=== PATIENT | female | born 1970 | race Caucasian/White ===

== ENCOUNTER 2022-05-15 10:55 | Outpatient (CLI) | payer BC, SELFPAY ==
--- NOTE | 2022-05-15 11:09 | MM_ITS ---
WS: [id number] DIAGNOSTIC BILATERAL DIGITAL BREAST TOMOSYNTHESIS MAMMOGRAPHY WITH CAD LEFT breast ultrasound, limited. HISTORY: L BREAST PAIN COMPARISON: None available. TECHNIQUE: Bilateral craniocaudad, mediolateral oblique, and mediolateral views are submitted with to mosynthesis and SM. Spot compression LEFT CC and MLO. Computer aided detection utilized. Breast composition: There are scattered areas of fibroglandular density. Ovoid mass measuring 11 mm i n the central LEFT breast at a middle depth. There is an additional lobulated round mass measuring 8 mm at 12:00 in the anterior breast. RIGHT breast is negative. LEFT breast ultrasound, limited. Lobulated nodule 12:00, 1 cm from the nipple measures 9 x 8 x 7 mm. No increased vascularity. Corresp onds to the mammographic abnormality. Hypoechoic mass at 3:00, 1 cm from the nipple measures 9 x 7 x 10 mm. This may correspond to the abno rmality on the mammogram. MM/[place] [id number] IMPRESSION: BI-RADS: 4-Suspicious Finding-Biopsy Should Be Considered FOLLOW UP: Biopsy Recommended 1. Ultrasound-guided biopsy recommended LEFT breast at 3:00, 1 cm from the nip ple of the hypoechoic mass measuring 9 x 7 x 10 mm. 2. Benign cyst anterior LEFT breast at 12:00. Notified Sanjiv Rocha at 05/15/2022 12:27 PM.
== END 2022-05-15 10:56 | disposition home or self-care (01) ==
PROVIDERS: PCP Family Medicine; Visit Provider Family Medicine
DX: N64.4 Mastodynia (principal); N63.25 Unspecified lump in the left breast, overlapping quadrants; N60.02 Solitary cyst of left breast
CPT/HCPCS: 76642; 77062; G0279

== ENCOUNTER 2022-06-11 08:04 | Outpatient (CLI) | payer BC, SELFPAY ==
--- NOTE | 2022-06-11 08:16 | US_ITS ---
WS: [id number] ULTRASOUND LEFT BREAST HISTORY: ABNORMAL MAMMO COMPARISON: 05/15/2022 TECHNIQUE: 2-D and Doppler. The suspicious finding seen on the prior ultrasound is not reproducible. There is a large amount shad owing which is probably edge shadowing. This is not reproducible in 2 different planes. There is no p ersistent mass identified. No biopsy will be performed. US/US breast LT limited* [id number] IMPRESSION: BI-RADS: 2-Benign FOLLOW-UP: 1 Year Follow-up Patient to return to annual screening mammography. Screening mammography should be performed in April 2023.
== END 2022-06-11 08:05 | disposition home or self-care (01) ==
PROVIDERS: PCP Family Medicine; Visit Provider Family Medicine
DX: R92.8 Other abnormal and inconclusive findings on diagnostic imaging of breast (principal)
CPT/HCPCS: 76642

== ENCOUNTER 2022-10-16 13:39 | Emergency (ER) | payer BC, MEDICAID, SELFPAY ==
[2022-10-16 13:43] VITALS: BP 180/99; PULSE 113; RESP 18; TEMP 36.6; O2SAT 98; BMI 42.4
--- NOTE | 2022-10-16 13:56 | XR_ITS ---
WS: [id number] Exam: XR knee RT 3V* [id number] Date/Time of Exam: 10/16/2022 2:16 PM Reason For Exam: knee pain No fracture or dislocation. Early degenerative narrowing of the medial joint compartment. No joint ef fusion identified. Normal soft tissues. XR/XR knee RT 3V* [id number] IMPRESSION: 1. Mild degenerative narrowing of the medial joint compartment. No other signif icant finding.
--- NOTE | 2022-10-16 13:59 | W.ED.EXTPRO ---
HPI - Extremity Problem General: Chief complaint: Extremity Injury, Lower Stated complaint: Right Knee injury Time Seen by Provider: 10/16/22 13:50 History of Present Illness: RightPatient presents to the ER with right knee pain. Patient states she thinks it was dislocated yesterday but went back in place and every time today she straightens it out straight her kneecap goes into the midline and a this hurts really bad. MD Complaint: extremity pain and joint pain Onset (ago): day(s) (Yesterday) Pain Consistency: intermittent Location: right, lower extremity and knee Quality: stabbing and aching Radiation: none Relieving factors: nothing Exacerbating factors: range of motion, walking and palpation Associated symptoms: Reports no associated symptoms Review of Systems General: Reports: 10 or more systems reviewed and unremarkable except in HPI and below Physical Exam Const: COMMON NORMALS: no acute distress, average body habitus, patient oriented x3, no limitations, healthy appearing, alert and well nourished HENMT: COMMON NORMALS: normocephalic, atraumatic, hearing grossly normal bilaterally, external ears normal, Normal external nose present and moist oral mucous membranes HEAD & SCALP: normocephalic and atraumatic NOSE: Normal external nose present EXTERNAL EAR: Yes external ears normal Eye: COMMON NORMALS: Equal, round and reactive pupils present, EOMs intact bilaterally, conjunctivae normal and no scleral icterus CONJUNCTIVA: Yes conjunctivae normal PUPIL: Yes Equal, round and reactive pupils present Neck/C-Spine: COMMON NORMALS: no JVD Chest: COMMONS NORMALS: normal inspection of the chest and normal palpation of entire chest wall Resp: COMMON NORMALS: normal respiratory effort, No retractions, No use of accessory muscles and clear to auscultation bilaterally AUSCULTATION: clear to auscultation bilaterally Cardio: COMMON NORMALS: no JVD, regular rate, regular rhythm, S1 normal heart sound present and S2 normal heart sound present RATE: regular rate RHYTHM: regular rhythm HEART SOUNDS: S1 normal heart sound present and S2 normal heart sound present GI: COMMON NORMALS: Normal to inspection, nondistended, normoactive bowel sounds present, Soft to palpation, non-tender, No hepatosplenomegaly present and no masses PALPATION: Yes Soft to palpation and Yes No hepatosplenomegaly present Extremity: NARRATIVE EXTREMITY EXAM: Right knee swollen very tender to palpation limited range of motion secondary to pain Neuro: COMMON NORMALS: patient oriented x3 SENSORIUM/ORIENTATION: Yes alert Course Vital Signs: Vital signs: Vital Signs Temperature 97.8 F 10/16/22 13:43 Pulse Rate 113 H 10/16/22 13:43 Respiratory Rate 18 10/16/22 14:44 Blood Pressure 205/121 10/16/22 14:44 Pulse Oximetry 93 10/16/22 14:44 Oxygen Delivery Me thod Room Air 10/16/22 14:44 MDM - Extremity (Nontraumatic) Medical Decision Making Patient presents to the ER with complaints of right knee pain. Patient states she probably dislocated yesterday and reset it herself when she straighten out her leg. As the patient has had pain on it ever since then. Patient had an x-ray which showed mild degenerative changes otherwise negative. Patient's knee is very swollen very tender to the touch. Patient will be discharged with a knee immobilizer prescription for pain medicine and a consult for Ortho. Differential Diagnosis Unlikely herpes zoster, gout, cellulitis, superficial thrombophlebitis, deep venous thrombosis of upper extremity, lower extremity edema or deep vein thrombosis of lower extremity Medical Records I reviewed the patient's medical records. Lab Data I reviewed the patient's lab results. Radiology Impressions Knee X-Ray 10/16/22 13:56 IMPRESSION: 1. Mild degenerative narrowing of the medial joint compartment. No other significant finding. Discharge Plan Discharge Patient Disposition: Home Clinical Impression: Acute knee pain Qualifiers: Laterality: right Qualified Code(s): M25.561 - Pain in right knee Condition: Stable Prescriptions: New hydrocodone-acetaminophen 5-325 mg tablet 1 tab PO QID PRN (Reason: pain) Qty: 14 0RF Discharge Orders: Discharge ED (Routine); Ordered 10/16/22 Ordered By: Lopez Lomax Referrals: aSnjiv Rocha [Primary Care Provider] - 1 week Patient Instructions: Opioid Safety, Pain Management Activity Restrictions/Additional Instructions: Take your pain medicine as prescribed. Wear knee immobilizer at all times. You have been referred to case management to help with referral for orthopedic surgeon. If you have not been notified within a couple days of an appointment please call back. Coding Level of Care Code ED Telecommunications Manager for Destin Edwards
[2022-10-16 14:44] VITALS: BP 205/121; RESP 18; O2SAT 93
[2022-10-16 15:05] VITALS: BP 179/110; RESP 17; O2SAT 94
[2022-10-16 15:55] VITALS: BP 145/77; O2SAT 96
--- NOTE | 2022-10-17 09:45 | DCPLANNER ---
Addendum entered by Lisbeth Kovacs 10/25/22 10:12: Patient had a follow up appointment scheduled with ortho - patient did attend appointment. Addendum entered by Lisbeth Kovacs 10/18/22 11:44: Patient has a follow up appointment scheduled for Saturday, October 24, 2022 at 2:[address] Faust at ortho. Original Note: medical affairs manager had message to schedule a follow up appointment for patient with ortho. medical affairs manager sent patients information to the front office staff at ortho. Patients information will be printed and reviewed. Clinic will call patient with appointment information.
== END 2022-10-16 16:17 | disposition home or self-care (01) ==
PROVIDERS: Emergency Provider Emergency Medicine; PCP Family Medicine
DX: M25.561 Pain in right knee (principal)
CPT/HCPCS: 29530; 73562; 99283; E0114

== ENCOUNTER 2022-11-14 13:14 | Outpatient (CLI) | payer BC, MEDICAID, SELFPAY ==
--- NOTE | 2022-11-14 13:45 | MR_ITS ---
WS: [id number] MRI RIGHT KNEE NONCONTRAST TECHNIQUE: Axial PD, coronal PD fat sat, coronal PD, sagittal PD, and sagittal PD fat-sat images obta ined. CLINICAL INFORMATION: pain COMPARISON: None. FINDINGS: Distal quadriceps and patella tendons are intact. Small suprapatellar effusion. Hypertrophic patella. Normal ACL and PCL. Lobulated popliteal cyst with surrounding edema in the popliteal fossa. Poplitea l cyst measures measuring 1.1 x 3.1 x 6.7 AP by transverse by craniocaudal Medial and lateral meniscus appear intact. No acute appearing meniscal tears. Mild peripheral extrusi on of the medial and lateral meniscus. Moderate narrowing of the medial joint compartment with chroni c thinning of the medial meniscus. Grade IV chondromalacia with subchondral edema in the medial joint compartment. Medial and lateral collateral ligaments appear intact. Distal biceps femoris appears intact. Edema in the popliteal fossa. Mild chondromalacia patella. This is worse in the medial patella facet. No subc hondral edema. MR/MR knee RT wo con* [id number] IMPRESSION: 1. Normal ACL and PCL. Small suprapatellar effusion. 2. Moderate joint space narrowing medial joint compartment with grade IV chond romalacia with a small amount of subchondral edema. Chronic thinning of the med ial meniscus. No acute appearing meniscal tears. 3. Lobulated popliteal cyst with edema in the popliteal fossa may be due to re cent partial rupture. Lobulated cysts measures 1.1 x 3.1 x 6.7 cm AP by transve rse by craniocaudal. 4. MCL and LCL appear intact. 5. Mild chondromalacia patella with small suprapatellar effusion. Outbridge grading: grade IV: full-thickness cartilage loss with underlying bone reactive changes
== END 2022-11-14 13:15 | disposition home or self-care (01) ==
PROVIDERS: PCP Family Medicine; Visit Provider Orthopaedic Surgery
DX: M25.461 Effusion, right knee (principal); M71.21 Synovial cyst of popliteal space [Baker], right knee; M22.41 Chondromalacia patellae, right knee
CPT/HCPCS: 73721

== ENCOUNTER 2022-12-12 11:48 | Outpatient (CLI) | payer BC, MEDICAID, SELFPAY ==
[2022-12-12 12:38] LABS: Basophils % 0.6 %; Eosinophils # 0.1 10^3/uL (0.0-0.8); Hematocrit 38.4 % (37.0-47.0); Hemoglobin 12.5 g/dL (11.5-15.3); Lymphocytes % 29.6 %; Mean Corpuscular HGB Conc 32.6 g/dL (30.0-36.0); Mean Corpuscular Volume 86.1 fl (81-99); Mean Platelet Volume 10.3 fL (7.4-10.4); Monocytes # 0.8 10^3/uL (0.2-0.9); Monocytes % 12.4 %; Neutrophils % 55.8 %; Nucleated Red Blood Cells % 0 %; Platelet Count 286 10^3/cmm (130-400); Red Blood Count 4.46 10^6/uL (4.1-5.3); Red Cell Distribution Width 14.6 % (12.1-15.1); White Blood Count 6.8 10^3/uL (4.0-10.0)
[2022-12-12 12:49] LABS: Alanine Aminotransferase 34 U/L (0-33); Albumin Level 3.9 g/dL (3.5-5.2); Alkaline Phosphatase 64 U/L (35-105); Aspartate Amino Transferase 16 U/L (0-32); Blood Urea Nitrogen 8 mg/dL (6-20); Calcium 9.1 mg/dL (8.5-10.5); Carbon Dioxide 23 mmol/L (22-29); Chloride 104 mmol/L (98-107); Globulin 3.3 g/dL (1.3-4.6); Glomerular Filtration Rate 104.6 mL/min (90-130); Glucose 98 mg/dL (65-115); Osmolality Calculated 284 mOsm/kg (285-295); Sodium 138 mmol/L (136-145); Total Bilirubin 0.3 mg/dL (0.15-1.2); Total Protein 7.2 g/dL (6.6-8.7)
== END 2022-12-12 11:49 | disposition home or self-care (01) ==
PROVIDERS: PCP Family Medicine; Visit Provider Nurse Practitioner Family
DX: B35.4 Tinea corporis (principal)
CPT/HCPCS: 36415; 80053; 85025

== ENCOUNTER 2022-12-12 15:27 | Outpatient (CLI) | payer BC, SELFPAY | END 2022-12-12 15:28 | disposition home or self-care (01) | LOC: SPT 15:28 | PROVIDERS: PCP Family Medicine; Visit Provider Student in an Organized Health Care Education/Training Program | DX: Z46.89 Encounter for fitting and adjustment of other specified devices (principal); M25.561 Pain in right knee | CPT/HCPCS: 97760; L1851 ==

== ENCOUNTER → 2023-07-02 13:32 | Outpatient (BNVA) | payer BC, MEDICAID, SELFPAY | PROVIDERS: PCP Family Medicine; Visit Provider Physician Assistant | DX: Z01.818 Encounter for other preprocedural examination (principal); M17.11 Unilateral primary osteoarthritis, right knee; M25.561 Pain in right knee; M25.562 Pain in left knee | CPT/HCPCS: 73560; 73565 ==

== ENCOUNTER → 2023-07-29 12:10 | Outpatient (BNVA) | payer BC, MEDICAID, SELFPAY | PROVIDERS: PCP Family Medicine; Visit Provider Family Medicine | DX: Z01.818 Encounter for other preprocedural examination (principal); Z79.899 Other long term (current) drug therapy | CPT/HCPCS: 80053; 81003; 85025 ==

== ENCOUNTER → 2023-07-30 07:10 | Outpatient (BNVA) | payer BC, MEDICAID, SELFPAY | PROVIDERS: PCP Family Medicine; Visit Provider Family Medicine | DX: Z01.818 Encounter for other preprocedural examination (principal); R82.71 Bacteriuria | CPT/HCPCS: 87086; 87184 ==

== ENCOUNTER 2023-08-01 07:44 | Outpatient (CLI) | payer BC, MEDICAID, SELFPAY ==
--- NOTE | 2023-08-01 08:00 | CT_ITS ---
WS: [id number] CT RIGHT KNEE, NONCONTRAST MICHEL TECHNIQUE: Noncontrast CT of the RIGHT knee to include the RIGHT hip and ankle. CLINICAL INFORMATION: M17.11 - Unilateral primary osteoarthritis, right knee DLP: [id number] scans at [facility] use at least one of these dose optimization techniques: automated e xposure control; mA and/or kV adjustment per patient size (includes targeted exams where dose is matc hed to clinical indication); or iterative reconstruction. FINDINGS: Moderate degenerative arthritis RIGHT knee with joint space narrowing worse in the medial joint james rtment. Small suprapatellar effusion. Small lobulated popliteal cyst. Sigmoid diverticulosis. IMPRESSION: Images obtained for preoperative purposes.
== END 2023-08-01 07:45 | disposition home or self-care (01) ==
LOC: RAD 07:44
PROVIDERS: PCP Family Medicine; Visit Provider Physician Assistant
DX: M17.11 Unilateral primary osteoarthritis, right knee (principal)
CPT/HCPCS: 73700

== ENCOUNTER 2023-08-12 15:32 | Observation (INO) | payer BC, MEDICAID, SELFPAY ==
[2023-08-12] VITALS (20 sets, daily range): BP systolic 112–178; BP diastolic 77–114; PULSE 89–102; RESP 8–18; TEMP 36.3–37.1; O2SAT 89–100; BMI 33.2
[2023-08-12 10:51] LABS: Basophils % 0.4 %; Eosinophils # 0.1 10^3/uL (0.0-0.8); Eosinophils % 1.7 %; Lymphocytes # 1.7 10^3/uL (0.8-4.8); Lymphocytes % 24.2 %; Mean Corpuscular HGB Conc 30.8 g/dL (30-55); Mean Corpuscular Hemoglobin 24.3 pg (27-33); Mean Platelet Volume 10.1 fL (7.4-10.4); Monocytes # 0.6 10^3/uL (0.2-0.9); Monocytes % 7.6 %; Neutrophils # 4.73 10^3/uL (1.8-7.7); Neutrophils % 65.8 %; Nucleated Red Blood Cells % 0 %; Platelet Count 290 10^3/cmm (157-399); Red Blood Count 4.81 10^6/uL (3.85-5.65); Red Cell Distribution Width 17.4 % (12.1-15.1); White Blood Count 7.19 10^3/uL (3.29-11.43)
--- NOTE | 2023-08-12 10:51 | ANES.PREANE2 ---
Pre-Anesthetic Assessment Height/Weight: Height 1.7 m Weight 96.162 kg Temp Pulse Resp BP Pulse Ox O2 Del Method 97.9 F 101 H 18 149/99 99 Room Air 08/12/23 09:58 08/12/23 09:58 08/12/23 09:58 08/12/23 09:58 08/12/23 09:58 08/12/23 10:01 Operation Date: 08/12/23 11:20 Proposed Procedures p Fabien Robot Total Knee Arthroplasty(Right) - Duran Mckeon DO Familial anesthetic complications: None Was Beta Pernell taken within 24 hours: N/A Was Clonidine taken within 24 hours: N/A Last intake: Intake Last Liquid Date 08/11/23 Last Liquid Time 23:30 Last Solid Date 08/11/23 Last Solid Time 20:00 Social No alcohol and No tobacco Exam alert, oriented x 3, clear to auscultation bilaterally and regular rate & rhythm Airway Mallampati: Class II Dentition: chipped (many broken) CV/HEM Hypertension factor V leden on qu - last took at 10 pm saturday ngiht Hepatic Hepatitis (autoimmune) Metabolic Thyroid Disease Anesthetic Plan ASA status: 3 Anesthesia: General (eliquis on saturday nigth at 10 pm) and Regional (specify below) (adductor) Risk of > 500 ml blood loss (7ml/kg in children): No Medications/Allergies Home Medications Medication Instructions Recorded Confirmed Last Taken Type apixaban 5 mg tablet (Eliquis) 5 mg PO BID 10/24/22 08/09/23 08/08/23 History budesonide 9 mg capsule,extended 9 mg PO DAILY 10/24/22 08/09/23 08/09/23 History release levothyroxine 50 mcg tablet 50 mcg PO DAILY 10/24/22 08/09/23 08/12/23 History (Synthroid) losartan 50 mg tablet 50 mg PO DAILY 10/24/22 08/09/23 08/11/23 History Director Microbiology Brace #1 ea 12/03/22 07/02/23 Unknown Rx apremilast 30 mg tablet (Otezla) 30 mg PO BID 07/02/23 08/09/23 08/11/23 History omeprazole 20 mg capsule,delayed 20 mg PO DAILY 07/02/23 08/09/23 08/11/23 History release levofloxacin 500 mg tablet 500 mg PO DAILY #5 tabs 08/05/23 08/09/23 08/08/23 Rx Allergies Allergy/AdvReac Type Severity Reaction Status Date / Time Penicillins Allergy ALGY-Anaphy Verified 08/09/23 08:52 laxis [facility] Anesthesia Social History Smoking and tobacco/nicotine status: never used tobacco/nicotine Alcohol intake: never Substance/Drug Use: never Data Anesthesia 08/12/23 10:30 08/12/23 10:30 Cardiac Studies: No Data to Display
[2023-08-12] MEDS: lactated ringers 500 ML IV (10:55)
[2023-08-12] MEDS: scopolamine 1.5 Patch 1 PATCH TRANSDERMA (10:55)
[2023-08-12] MEDS: ketorolac 30 mg/mL INJ IVP (10:55)
[2023-08-12] MEDS: acetaminophen 1,000 MG/100 ML PIGGYBACK 400 MG IV ×2 (10:56→18:22)
[2023-08-12 11:06] LABS: Anion Gap 13.8 (5-19); Blood Urea Nitrogen 11 mg/dL (6-20); Calcium 9.2 mg/dL (8.5-10.5); Carbon Dioxide 27 mmol/L (22-29); Chloride 107 mmol/L (98-107); Creatinine Clr Calc Pharmacy 129.1126; Glomerular Filtration Rate 104.6 mL/min (90-130); Glucose 84 mg/dL (65-115); Osmolality Calculated 297 mOsm/kg (285-295); Potassium 3.8 mmol/L (3.5-5.1); Sodium 144 mmol/L (136-145)
[2023-08-12] MEDS: sodium chloride 0.9% 1,000 ML 30 ML IV (11:35)
[2023-08-12] MEDS: vancomycin 1,000 MG in sodium chloride 0.9% 250 ML 250 MG IV (11:40)
--- NOTE | 2023-08-12 12:00 | SUR.PREOP ---
Assisted Dr. Giordano with nerve block to right lower ext. Time out performed. Thigh prepped per Dr. Giordano. VS monitored and stable. Pt tolerated well.
[2023-08-12 12:11] LABS: Add Urine Microscopic? NO; Charge for UA Resulting for Rev
--- NOTE | 2023-08-12 12:12 | ANES.PROC ---
Anesthesia Procedures Procedure/Date: 08/12/23 Nerve Block ^: Nerve Block 1: Main Anesthesia: general anesthesia Time Out Performed: Yes Consent: requested by attending/covering physician, from patient, from other, risks and benefits reviewed and patient agrees to proceed Nerve block location: adductor canal (R) Anesthesia monitors applied: pulse oximetry, EKG, BP cuff and oxygen Nerve block position: supine Anesthetic Used: ropivicaine 0.5% (30 ml) and with decadron (4 mg) Ultrasound used to: recognize landmarks and visualize and ID femerol nerve Nerve Stimulator Used?: No Interscalene/Femoral BLK: 4 stimuplex 21 g needle used for position and inplane approach, visualize local anesthetic spread and no vascular puncture identified Injection: neg aspiration of heme Patient Tolerated Procedure: well and no complications Complications: none
[2023-08-12 12:16] LABS: Bilirubin Urine Neg (Negative); Blood Urine Neg (Negative); Glucose Urine UA Norm (Normal); Ketones Urine Negative (Negative); Leukocyte Esterase Urine Negative (Negative); Nitrate Urine Negative (Negative); Protein Urine Neg (Negative); Specific Gravity, Urine 1.015 (1.005-1.030); Urine Appearance Clear (CLEAR); Urine Color Yellow (Yellow); Urobilinogen Urine Neg (Negative); pH Urine 5 (5-7)
--- NOTE | 2023-08-12 12:23 | P.HP_ITS ---
Providers/Chief Complaint 2 Admitting Physician: Yola Quiñones DO Primary Care Provider: Sanjiv Rocha Chief Complaint: M17.11 Right knee degenerative joint disease History of Present Illness Kesha Sanz is a 52 year old female Right knee degenerative joint disease and failed conservative treatment at this point in time she elects proceed with a right total knee arthroplasty she is here today after passing the preoperative clearance process. He is here today for hospital for a right total knee arthroplasty Fabien robotic assisted. No change in overall health since last office visit. Her recheck of her UA is clean and is ready to proceed with the OR today. Review of Systems 2 General: Reports: 10 or more systems reviewed and unremarkable except in HPI and below Medications/Allergies Home Medications Medication Instructions Recorded Confirmed Last Taken Type apixaban 5 mg tablet (Eliquis) 5 mg PO BID 10/24/22 08/09/23 08/08/23 History budesonide 9 mg capsule,extended 9 mg PO DAILY 10/24/22 08/09/23 08/09/23 History release levothyroxine 50 mcg tablet 50 mcg PO DAILY 10/24/22 08/09/23 08/12/23 History (Synthroid) losartan 50 mg tablet 50 mg PO DAILY 10/24/22 08/09/23 08/11/23 History Paper Cone Grader Brace #1 ea 12/03/22 07/02/23 Unknown Rx apremilast 30 mg tablet (Otezla) 30 mg PO BID 07/02/23 08/09/23 08/11/23 History omeprazole 20 mg capsule,delayed 20 mg PO DAILY 07/02/23 08/09/23 08/11/23 History release levofloxacin 500 mg tablet 500 mg PO DAILY #5 tabs 08/05/23 08/09/23 08/08/23 Rx Allergies Allergy/AdvReac Type Severity Reaction Status Date / Time Penicillins Allergy ALGY-Anaphy Verified 08/09/23 08:52 laxis PFSH 2 PFSH: Social History Smoking and tobacco/nicotine status: never used tobacco/nicotine Alcohol intake: never Substance/Drug Use: never Vital Signs Vitals Signs: Last Vital Signs Temp 97.9 F 08/12/23 09:58 Pulse 99 08/12/23 12:00 Resp 18 08/12/23 12:00 BP 178/114 08/12/23 12:00 Pulse Ox 99 08/12/23 12:00 O2 Del Method Room Air 08/12/23 12:00 Weight: Weight last 48 hrs Weight 212 lb Physical Exam 2 Narrative: EXAM NARRATIVE: Right Knee Exam: ROM 0 to greater than 120 degrees patellar crepitus with ROM Medial joint line tenderness to palpation lateral joint line tenderness to palpation Mild joint effusion 5 degrees of Varus malalignment, correctable on exam Stable Varus and Valgus Right lower extremity warm well-perfused Data 08/12/23 10:30 08/12/23 10:30 A&P Assessment and plan (1) Right knee DJD: Plan Patient elects proceed with right total knee arthroplasty Fabien robotic assisted. She understands these and outs procedure the risk benefits complication alternatives of surgery and through shared decision-making elects proceed with surgical intervention. All questions answered at this time she is clear the preoperative clearance process. Proceed to the OR today. Coding Level of Care Code Acute Code for Chg Fwd Diagnoses Right knee DJD M17.11
[2023-08-12] MEDS: clindamycin 900 MG/50 ML PREMIX 100 MG IV ×2 (12:58→21:20)
[2023-08-12] MEDS: ketorolac 30 mg/mL INJ XX (13:52)
[2023-08-12] MEDS: ROPivacaine 0.2% Premix 100 mL 200 MG INTRA-ARTI (13:52)
[2023-08-12] MEDS: EPINEPHrine 1 mg/mL INJ XX (13:52)
--- NOTE | 2023-08-12 14:46 | P.BOP_ITS ---
Date of Procedure: 08/12/2023 Surgeon: Duran Mckeon DO Steward/Stewardess Chief Cargo Vessel(s): Franko Mckeon PA-C Procedure(s) performed: Right total knee arthroplasty?Fabien robotic assisted Findings of the procedure(s): Patient found to have right knee degenerative joint disease, patient underwent procedure as planned without any issues or complications Estimated blood loss: 20 mL Specimen(s) removed: Tibia femur and patellar bone cuts removed Post-operative diagnosis: Right knee degenerative joint disease
--- NOTE | 2023-08-12 14:48 | P.OP_ITS ---
Operative Report Date of procedure: August 12, 2023 Surgeon: Duran Mckeon DO Procedure: Preoperative diagnosis: Left knee degenerative joint disease Post-op diagnosis: Same Procedure done: Left total knee arthroplasty, cemented?robotic assisted Fabein Implants: [place] triathlon size 4 femur CR cemented left Tracie triathlon size? 3 tibia universal baseplate cemented Trcaie triathlon symmetric patella size 31 mm Tracie triathlon polyethylene 9mm Surgeon: Duran Mckeon DO Estimated blood loss: 50 mL Tourniquet 60minutes IV fluids: 1200 mL Urine output: 600 mL Complications: None Condition: stable Disposition: floor Brief History: Patient is a 71-year-old female with with chronic left knee degenerative joint disease.? Patient has been worked up in the outpatient setting in the orthopedic office at this point time through shared decision making given? [id number] arthritis as well as failed conservative treatment, and pt would like to proceed with a left total knee arthroplasty.? Through shared decision making elected to proceed with surgical intervention for left total knee arthroplasty.? We talked about continued conservative treatment and surgical intervention as far as the risk benefits complications alternatives surgical and nonsurgical treatment options.? At this point time understanding patient risks with surgery he agrees to proceed with surgical intervention.? Once again? risk with surgery include but are not limited to make it better make it worse blood clot, heart attack, stroke, on the table, infection, injury to nerves or vessels, persistent pain, arthrofibrosis, implant failure.? Understanding these risks patient agrees to proceed with surgical intervention consent was obtained in the office.? All questions answered. Procedure: Patient was seen and evaluated in the preoperative holding area.? Consent was reviewed and signed with patient with plan for left total knee arthroplasty.? All questions answered.? Correct extremity marked.? Patient seen and evaluated b y the anesthesia department and once cleared for surgery was taken back to the operative suite.? Patient was placed into a supine position on the OR table.? All bony prominences were well-padded.? Patient was appropriately secured to the bed.? Patient underwent anesthesia per the anesthesia department.? Patient received spinal anesthesia and? Carlin catheter was placed.? A nonsterile tourniquet was applied to the left thigh.? At this point in time a final timeout performed.? Patient received appropriate preoperative antibiotics and TXA. Next the left lower extremity was then prepped and draped in standard orthopedic fashion. Esmarch tourniquet was used exsanguinate the left lower extremity.? Tourniquet was insufflated to 250 mmHg. A standard anterior incision was made over midline of the knee.? Sharp scalpel excision through skin and subcutaneous tissue full-thickness skin flaps were made.? Fascia was elevated off of the extensor retinaculum was stable with medial parapatellar arthrotomy was then made.? The performed standard sequential releases..? Immediately on entry into the joint patient was found to have severe eburnated bone and tricompartmental arthritic changes noted.? With significant osteophyte formation.? Next the the patella was then stuffed and the knee was then flexed.?? Mayela was placed superiorly around the anterior aspect of the femur this was freed of synovium and I subsequently then placed by 2 femur pins to establish my femur arrays for the Fabien robot.? These were then placed bicortically and? femur array was then appropriately secured with appropriate visualization.? Next attention was turned towards the tibial rays.? These were then drilled sequentially bicortically in parallel fashion and intraincisional.? I then placed my guide as well as my tibial array on in place.? This was appropriately secured and had excellent visualization with the Fabien robot.? Next the tibial checkpoint as well as femur checkpoint were then placed.? At this point time I then subsequently established my head center as well as my medial lateral malleoli as well as my checkpoints.? Next utilizing standard [employer] technology I then mapped out the appropriate points and confirmation points around the femur as well as the tibia in standard fashion.? Once this was then done I then removed all osteophytes in preparation for dynamic testing.? All osteophytes were removed as well as I removed the ACL and the PCL was excised due to its significant tearing and degeneration noted.? At this point time the knee was brought into full extension and we performed our standard evaluation of our gap balancing stressing his ligaments and extension as well as flexion appropriate adjustments were made to have appropriate gap balancing in both flexion and extension.? This plan for final counts.? We get a preoperative plan evaluating our implants which was a size 4 femur and a size 3 tibia.? Next we brought in the Fabien robot and sequentially made our femur cuts.? All excess bony cuts were then removed.? Finally we made our tibial cut.? Once this was done a standard PCL retractor was then placed into this position I excised the medial and lateral meniscus.? The tibial cut was then subsequently removed all excess bony debris was removed.? I then utilized a lamina retail team member and remove the posterior osteophytes.? At this point time sized the tibia and confirmed this was a size 3.? I utilized our blunt probe to establish rotation of tibial implant.? Once this was done I then placed my tibia size 3 trial in appropriate position and then subsequently placed tibial pins to hold this into place placed a size 9 mm poly as well as a size 4 femur which was appropriately impacted in place knee was then subsequently brought into extension. Trials were then assessed,? this was stable with varus valgus stress in extension as well as had symmetrical translation when brought into flexion demonstrating symmetrical gaps. I had excellent balance gaps in flexion and extension with varus and valgus stresses.? At this point I was satisfied with these implants these were then verified and opened on the back table size 3 tibia, size4 femur,? size 9 mm polythickness.? We did confirm appropriate gap balancing and stresses as well as alignment utilizingVincent Conn and were satisfied with this plan.? ?At this point time with my trials in place I then towel clip the patella everted this made appropriate measurements subsequently utilizing freehand technique performed by patellar resurfacing this was confirmed to be appropriate resection and subsequently sized to be a 31 mm symmetric.? My drill peg guides were then clamped and appropriate position and appropriate position in the patella for appropriate tracking and parallel with the joint.? Pegs were drilled trial implant was placed and the knee was then subsequently ranged and found to have excellent patellar tracking.? Femur pegs were then drilled.? Satisfied with our tibial placement rotation I then utilized the keel punch and prepped the tibia.? At this point time all of our trial implants were removed.? All checkpoints as well as guidepins and arrays were removed and appropriate counts made.? The wound bed? was thoroughly irrigated and dried and prepped for cementation.? Cement was mixed on the back table.? Once cement was ready this was then covered onto the tibia and the tibial baseplate was then impacted and all excess cement was removed.? Next the polyethylene was then impacted into place on the tibial baseplate.? Next cement was placed onto the femur as well as under the femur implants and impacted in to place and all excess cement was extruded and removed.? Knee was taken into full extension? to clear all excess cement was removed.? Warm saline was placed over the joint.? I then towel clip patella and dried for cementation. cemented the patella into place.? This was all clamped and the cement was allowed to cure.? Thorough irrigation performed with pulse lavage.? I then placed my periarticular injection while the cement was curing.? Once cured the knee was taken through range of motion and had excellent stability and gaps were balanced in flexion and extension.? Tourniquet was then deflated. hemostasis satisfactory with electrocautery.? Next I then subsequently closed the capsule with Ethibond suture as well as a running strata fix suture.? Knee was then taken through range of motion 30 times.? Next the skin was then closed in layered fashion of running stratifix sutures of deep and subcutenous tissue and skin.? ?closed in flexion and Prineo glue was then placed over the incision this allowed to cure.? Incision was covered with OpSite, with ABDs soft roll and Harsha wrap.? Patient was then awakened from anesthesia and taken to PACU in stable condition. Disposition: Patient taken to PACU in stable condition will be admitted to the floor for pain control PT/OT weight-bear as tolerated left lower extremity dressing changes as needed, DVT prophylaxis. Pain control. Patient will receive appropriate postoperative antibiotics. patient will be seen today by the internal medicine team for medical management.? Patient will follow up with the office in 2 weeks.? Patient understands agrees with current plan.? All questions answered. ?
--- NOTE | 2023-08-12 15:12 | PM.PACU ---
PACU note Narrative: Patient is a 52-year-old female just underwent a right knee total arthroplasty. Pt transferred to PACU in stable condition. Dressing is dry. pt is awake and alert. pt can wiggle toes and plantarflex and dorsiflex foot. pt able to perform straight leg raise, Femoral nerve intact. Distal pulses are palpable toes are warm and well-perfused. Cap refill is normal and under 2 seconds. Sensation to foot is intact. Pain is controlled. Exam: awake Disposition: admitted
[2023-08-12] MEDS: fentaNYL 50 mcg/mL INJ 2mL IVP (15:17)
--- NOTE | 2023-08-12 15:19 | XRR_ITS ---
PROCEDURE INFORMATION: Exam: XR Right Knee Exam date and time: 08/12/2023 2:22 PM Age: 52 years old Clinical indication: Device placement; Joint replacement hardware; Prior surgery; Surgery date: Post-operative (0-2 days); Surgery type: Post op RT tka; Additional info: S/P R tka TECHNIQUE: Imaging protocol: Radiologic exam of the right knee. Views: 3 views. COMPARISON: CT knee RT [facility] [id number] 08/01/2023 8:04 AM FINDINGS: Bones/joints: Status post right total knee arthroplasty with surgical hardware in expected alignment. Soft tissues: Soft tissue swelling and air noted in the anterior knee consistent with recent surgical procedure. XR/XR knee RT 3V* [id number] IMPRESSION: Status post right total knee arthroplasty with surgical hardware in expected alignment.
[2023-08-12] MEDS: ondansetron 2 mg/ML SDV 2 mL 4 MG IVP ×2 (15:31→16:43)
--- NOTE | 2023-08-12 15:45 | ANE.PACU2 ---
Inpatient post-anesthesia follow up: Airway intact: Yes Vital signs: Temperature 97.7 F Pulse Rate 99 Respiratory Rate 18 Blood Pressure 145/88 Pulse Oximetry 93 Oxygen Delivery Me thod Room Air Oxygen Flow Rate 6 Fraction of Inspir ed Oxygen Hydration adequate: Yes Nausea and vomiting: No Pain level: 1 Mental status: Baseline
[2023-08-12] MEDS: HYDROmorphone 1 mg/mL INJ 1 mL 0.5 MG IVP (16:44)
[2023-08-12] MEDS: docusate sodium 100 mg Capsule PO (16:44)
[2023-08-12] MEDS: iron polysaccharide complex 150 mg Capsule PO (16:44)
[2023-08-12] MEDS: calcium carb-vit d 600mg/400unit 1 Tablet 1 EACH PO (16:44)
[2023-08-12] MEDS: lactated ringers 1,000 ML 100 ML IV (16:45)
[2023-08-12] MEDS: mupirocin oint 22 gm 1 APPLIC NASAL (16:45)
[2023-08-12] MEDS: chlorhexidine gluconate 0.12% Btl 473 mL 30 ML MUCOUS MEM ×2 (16:45→21:20)
--- NOTE | 2023-08-12 16:59 | P.CONIM_ITS ---
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, from factor V Leiden, on Eliquis, hypertension, obesity, who presents [facility] for right total knee arthroplasty, patient was seen postoperatively, she is alert oriented x 3, following all commands, has no significant complaints, no fevers, no chills, no cough Medications/Allergies Home Medications Medication Instructions Recorded Confirmed Last Taken Type apixaban 5 mg tablet (Eliquis) 5 mg PO BID 10/24/22 08/09/23 08/08/23 History budesonide 9 mg capsule,extended 9 mg PO DAILY 10/24/22 08/09/23 08/09/23 History release levothyroxine 50 mcg tablet 50 mcg PO DAILY 10/24/22 08/09/23 08/12/23 History (Synthroid) losartan 50 mg tablet 50 mg PO DAILY 10/24/22 08/09/23 08/11/23 History [employer] Brace #1 [email or web address] 12/03/22 07/02/23 Unknown Rx apremilast 30 mg tablet (Otezla) 30 mg PO BID 07/02/23 08/09/23 08/11/23 History omeprazole 20 mg capsule,delayed 20 mg PO DAILY 07/02/23 08/09/23 08/11/23 History release levofloxacin 500 mg tablet 500 mg PO DAILY #5 tabs 08/05/23 08/09/23 08/08/23 Rx Allergies Allergy/AdvReac Type Severity Reaction Status Date / Time Penicillins Allergy ALGY-Anaphy Verified 08/09/23 08:52 laxis Current Medications Generic Name Dose Route Start Last Admin Trade Name Freq PRN Reason Stop Dose Admin Calcium Carbonate 1 each 08/12/23 18:00 08/12/23 16:44 Calcium Carb-Vit D 600mg/400unit 1 Tablet PO 1 each BID KEAGAN Administration Chlorhexidine Gluconate 30 ml 08/12/23 17:00 08/12/23 16:45 Chlorhexidine Gluconate 0.12% Btl 473 Ml MUCOUS MEM 30 ml QID KEAGAN Administration Docusate Sodium 100 mg 08/12/23 18:00 08/12/23 16:44 Docusate Sodium 100 Mg Capsule PO 100 mg BID KEAGAN Administration Hydromorphone HCl 0.5 mg 08/12/23 16:04 08/12/23 16:44 Hydromorphone 1 Mg/Ml Inj 1 Ml IVP 0.5 mg Q4H PRN Administration BREAKTHROUGH PAIN Lactated Ringer's 1,000 mls @ 100 mls/hr 08/12/23 16:04 08/12/23 16:45 Lactated Ringers IV 100 mls/hr .Q10H KEAGAN Administration Mupirocin 1 applic 08/12/23 18:00 08/12/23 16:45 Mupirocin Oint 22 Gm NASAL 08/17/23 17:59 1 applic BID KEAGAN Administration Protocol Ondansetron HCl 4 mg 08/12/23 16:04 08/12/23 16:43 Ondansetron 2 Mg/Ml Sdv 2 Ml IVP 4 mg Q6H PRN Administration NAUSEA AND VOMITING Polysaccharide Iron Complex 150 mg 08/12/23 18:00 08/12/23 16:44 Iron Polysaccharide Complex 150 Mg Capsule PO 150 mg BIDWM KEAGAN Administration PFSH Acute 2 PFSH: Medical History (Updated 08/12/23 @ 17:04 by Jeremias Bhakta MD) History of hypertension CRVO (central retinal vein occlusion) Surgical History (Updated 08/12/23 @ 17:02 by Jeremias Bhakta MD) H/O: hysterectomy Social History Smoking and tobacco/nicotine status: never used tobacco/nicotine Alcohol intake: never Substance/Drug Use: never Vitals/I&O/Wt Last Vital Signs Temp 97.7 F 08/12/23 16:09 Pulse 99 08/12/23 16:09 Resp 18 08/12/23 16:44 BP 145/88 08/12/23 16:09 Pulse Ox 93 08/12/23 16:44 O2 Del Method Room Air 08/12/23 16:09 O2 Flow Rate 6 08/12/23 15:13 08/12/23 08/12/23 08/12/23 06:59 14:59 22:59 Intake Total 900 / 900 236 / 1136 Output Total 320 / 320 Balance 900 / 900 -84 / 816 Weight last 48 hrs Weight 96.162 kg Physical Exam 2 Const: COMMON NORMALS: no acute distress and patient oriented x3 HENMT: COMMON NORMALS: normocephalic HEAD & SCALP: normocephalic Neck/C-Spine: COMMON NORMALS: no JVD Resp: COMMON NORMALS: normal respiratory effort, No retractions, No use of accessory muscles and clear to auscultation bilaterally AUSCULTATION: clear to auscultation bilaterally Cardio: COMMON NORMALS: no JVD, regular rate, regular rhythm, S1 normal heart sound present and S2 normal heart sound present RATE: regular rate RHYTHM: regular rhythm HEART SOUNDS: S1 normal heart sound present and S2 normal heart sound present GI: COMMON NORMALS: Normal to inspection, nondistended, normoactive bowel sounds present and non-tender Extremity: COMMON NORMALS: capillary refill normal, no clubbing, cyanosis or edema, no calf tenderness and no pedal edema OTHER: Right knee wrapped Neuro: COMMON NORMALS: patient oriented x3 Psych: COMMON NORMALS: mental status grossly normal Urinary Catheter Management: Carlin: Cath Placed During This Visit: yes Urinary Catheter Date of Insertion: 08/12/23 Urinary Catheter Time of Insertion: 11:40 Data 08/12/23 10:30 08/12/23 10:30 A&P Assessment and plan (1) History of arthroplasty of right knee: (2) History of hypertension: (3) Hypothyroid: Plan Status post right knee arthroplasty Pain control as per orthopedic team, ? Anticoagulation as per orthopedic team, PT OT Factor V Leiden, orthopedic service wants to resume Eliquis tomorrow morning Hypothyroidism, resume levothyroxine Hypertension resume Cozaar Consult Attestations 2 Medical Necessity Statement: Patient requires hospitalization status post right knee arthroplasty, factor V, hypothyroidism Diagnoses History of arthroplasty of right knee Z96.651 History of hypertension Z86.79 Hypothyroid E03.9
[2023-08-13] MEDS: lactated ringers 1,000 ML 100 ML IV (02:44)
[2023-08-13] MEDS: acetaminophen 1,000 MG/100 ML PIGGYBACK 400 MG IV ×2 (02:45→11:09)
[2023-08-13 03:36] VITALS: BP 119/77; PULSE 91; RESP 17; TEMP 36.6; O2SAT 95
[2023-08-13 03:37] VITALS: BMI 36.3
[2023-08-13 05:20] VITALS: RESP 20
[2023-08-13] MEDS: oxyCODONE 5 mg IR Tab/Cap PO ×2 (05:20→11:27)
[2023-08-13] MEDS: clindamycin 900 MG/50 ML PREMIX 100 MG IV (05:23)
[2023-08-13 05:51] LABS: Basophils % 0.1 %; Hematocrit 29.1 % (36-47); Lymphocytes % 9.3 %; Mean Corpuscular HGB Conc 30.6 g/dL (30-55); Mean Corpuscular Hemoglobin 24.3 pg (27-33); Mean Corpuscular Volume 79.5 fl (85-98); Mean Platelet Volume 10.4 fL (7.4-10.4); Monocytes # 0.6 10^3/uL (0.2-0.9); Neutrophils % 84.1 %; Nucleated Red Blood Cells % 0 %; Platelet Count 250 10^3/cmm (157-399); Red Blood Count 3.66 10^6/uL (3.85-5.65); Red Cell Distribution Width 17.6 % (12.1-15.1); White Blood Count 10.69 10^3/uL (3.29-11.43)
[2023-08-13 06:10] LABS: Anion Gap 11.4 (5-19); Blood Urea Nitrogen 8 mg/dL (6-20); Calcium 8.7 mg/dL (8.5-10.5); Carbon Dioxide 26 mmol/L (22-29); Chloride 105 mmol/L (98-107); Glomerular Filtration Rate 104.6 mL/min (90-130); Glucose 111 mg/dL (65-115); Osmolality Calculated 285 mOsm/kg (285-295); Potassium 4.4 mmol/L (3.5-5.1); Sodium 138 mmol/L (136-145)
[2023-08-13] MEDS: apixaban 5 mg Tablet PO ×2 (07:05→09:06)
[2023-08-13 07:13] VITALS: BP 136/86; PULSE 92; RESP 17; TEMP 36.5; O2SAT 96
[2023-08-13] MEDS: TRAMadol 50 mg Tablet PO (09:05)
[2023-08-13 09:06] VITALS: BP 136/86
[2023-08-13] MEDS: calcium carb-vit d 600mg/400unit 1 Tablet 1 EACH PO (09:06)
[2023-08-13] MEDS: levothyroxine 50 mcg Tablet PO (09:06)
[2023-08-13] MEDS: iron polysaccharide complex 150 mg Capsule PO (09:06)
[2023-08-13] MEDS: docusate sodium 100 mg Capsule PO (09:06)
[2023-08-13] MEDS: losartan 50 mg Tablet PO (09:06)
[2023-08-13] MEDS: mupirocin oint 22 gm 1 APPLIC NASAL (09:07)
[2023-08-13] MEDS: multivitamin therapeutic Tablet 1 TAB PO (09:07)
[2023-08-13] MEDS: chlorhexidine gluconate 0.12% Btl 473 mL 30 ML MUCOUS MEM ×2 (09:07→12:41)
--- NOTE | 2023-08-13 10:19 | PC.CHAP ---
Pastoral Care Encounter/Spiritual Assessment Type of Contact [] Declined layer off visit [] Patient/Family/Request visit [] Outpatient visit [] Follow-up visit [] Physician referral [] Code/Alert [x] Routine visit [] Staff referral [] Actively dying [] Patient sleeping [] Family support [] [] Out of room [] Palliative care [] [] Receiving care in room [] Pre-surgical visit [] Trauma [] Long length of stay [] ICU visit [] Other: Relational/Emotional Strength [x] Patient feels connected with others/family/visitors/staff [] Distress [] Loneliness/isolation [] Abandonment Spirituality of Patient [x] Person of [place] [] Attends Mandaen of their [place] [x] Believes in Prayer [] Reads Bible or Restorationist materials [] There are Spiritual issues to be addressed Manager Database Interventions [x] Prayer [x] Active listening [] Non-anxious presence [x] Spiritual/emotional support [] Crisis/trauma care [] Spiritual counseling [] Bereavement support [] Provided bereavement packet [] Provided Bible/devotional materials [] Provided toy/stuffed animal, coloring book to patient or family member [] Provided Communion [] Anointing/[place] [] Salvation [x] Completed spiritual assessment [] Other: Impact on Illness or Injury [] Angry [] Fearful [] Anxious [] Often cries [] Exhaustion [] Unable to work [] Unable to attend evangelical [] Unable to walk/stand [] Unable to read [] Unable to drive [] Unable to eat/drink [] Unable to sleep [] Unable to be with family [] Patient intubated [] Other: Summary Time spent with patient 5 min
[2023-08-13 11:02] VITALS: BP 176/112; PULSE 98; RESP 17; TEMP 36.3; O2SAT 100
[2023-08-13 11:27] VITALS: RESP 17; O2SAT 100
[2023-08-13] MEDS: vancomycin 1,500 MG/300 ML PIGGYBACK 200 MG IV (11:29)
--- NOTE | 2023-08-13 12:20 | P.DS_ITS ---
Discharge Providers Date of Admission: 08/12/23 15:32 Date of Discharge: August 13, 2023 Attending Provider at Admission: Duran Mckeon DO Attending Provider at Discharge: Duran Mckeon DO Consults: Dr. Bhakta?hospitalist Primary Care Provider: Sanjiv Rocha Diagnoses at Discharge Discharge Diagnosis (1) History of arthroplasty of right knee: Status: Acute (2) History of hypertension: Status: Acute (3) Hypothyroid: Status: Acute Reason for Visit Reason for Visit: M17.11 Brief History: Status post right total knee arthroplasty Hospital Course Hospital Course Patient presented to the preoperative holding area with plan for right total knee arthroplasty after patient has been worked up in the outpatient setting for failed conservative treatment of [ right] knee degenerative joint disease. Once cleared by anesthesia for surgery patient subsequently was taken back to the operative suite underwent anesthesia per anesthesia department and then subsequently underwent a [ right] total knee arthroplasty. Procedure was performed without any complications patient was taken to PACU in stable condition patient recovered well in PACU and then was admitted to the floor postoperatively internal medicine was consulted and on board for medical management and assistance with care. Patient received appropriate PT/OT, postoperative antibiotics, postoperative TXA, pain control, postoperative DVT prophylaxis. Elevation and ice. Patient encouraged for knee range of motion allowed weightbearing as tolerated to the operative lower extremity. Dressing was changed as needed, labs were monitored daily. Patient recovered well postoperatively and worked well and progressed well with therapy. It was determined on postoperative day [ 1] the patient was stable for discharge from an orthopedic standpoint and medicine. Patient was comfortable with discharge and plan was discharged home. Patient received appropriate discharge instructions as well as pain medication and DVT prophylaxis postoperatively. Given appropriate instructions for dressing management. Patient will follow-up with Dr. Mckeon/orthopedics in the office in 2 weeks. All questions answered. Understand if there is any issues questions or concerns and contact the office. Physical Exam Narrative: Orthopedic specific examination: Examination of the right knee dressings on in place are clean dry and intact, dressings not taken down. Patient's toes warm well-perfused brisk cap refill less than 2 seconds distal pulses palpable patient able to wiggle toes as well as plantarflex and dorsiflex ankle sensations intact light touch distally. Compartments are soft compressible throughout the lower extremities normal postoperative swelling about the right knee noted. Urinary Catheter Management: Carlin: Cath Placed During This Visit: yes, but has since been removed by the nurse Reason for Continuing Indwelling Catheter: Acute Urinary Retention or Obstruction Urinary Catheter Date of Insertion: 08/12/23 Urinary Catheter Time of Insertion: 11:40 Date Urinary Catheter Removed: 08/13/23 Time Urinary Catheter Discontinued: 03:07 Discharge Data Studies Completed and Pending Completed Studies During Hospitalization Category Date Time Status XR knee RT 3V* [id number] Routine Exams 08/12/23 15:19 Completed Radiology Impressions Knee X-Ray 08/12/23 15:19 IMPRESSION: Status post right total knee arthroplasty with surgical hardware in expected alignment. Laboratory Results WBC 9.85 10^3/uL (3.29-11.43) 08/13/23 13:18 RBC 3.70 10^6/uL (3.85-5.65) L 08/13/23 13:18 Hgb 9.20 g/dL (11.27-16.99) L 08/13/23 13:18 Hct 30.0 % (36-47) L 08/13/23 13:18 MCV 81.1 fl (85-98) L 08/13/23 13:18 MCH 24.9 pg (27-33) L 08/13/23 13:18 MCHC 30.7 g/dL (30-55) 08/13/23 13:18 RDW 17.5 % (12.1-15.1) H 08/13/23 13:18 Plt Count 229 10^3/cmm (157-399) 08/13/23 13:18 MPV 10.1 fL (7.4-10.4) 08/13/23 13:18 Neut % (Auto) 75.4 % 08/13/23 13:18 Lymph % (Auto) 15.9 % 08/13/23 13:18 Ralls % (Auto) 7.7 % 08/13/23 13:18 Eos % (Auto) 0.5 % 08/13/23 13:18 Baso % (Auto) 0.3 % 08/13/23 13:18 Neut # (Auto) 7.42 10^3/uL (1.8-7.7) 08/13/23 13:18 Lymph # (Auto) 1.6 10^3/uL (0.8-4.8) 08/13/23 13:18 Ralls # (Auto) 0.8 10^3/uL (0.2-0.9) 08/13/23 13:18 Eos # (Auto) 0.1 10^3/uL (0.0-0.8) 08/13/23 13:18 Baso # (Auto) 0.0 10^3/uL (0.0-0.1) 08/13/23 13:18 Nucleated RBC % (auto) 0 % 08/13/23 13:18 Nucleated RBCs # 0.0 /100WBC 08/13/23 13:18 Sodium 138 mmol/L (136-145) 08/13/23 05:40 Potassium 4.4 mmol/L (3.5-5.1) 08/13/23 05:40 Chloride 105 mmol/L (98-107) 08/13/23 05:40 Carbon Dioxide 26 mmol/L (22-29) 08/13/23 05:40 Anion Gap 11.4 (5-19) 08/13/23 05:40 BUN 8 mg/dL (6-20) 08/13/23 05:40 Creatinine 0.6 mg/dL (0.5-0.9) 08/13/23 05:40 GFR Calculation 104.6 mL/min (90-130) 08/13/23 05:40 Glucose 111 mg/dL (65-115) 08/13/23 05:40 Calculated Osmolality 285 mOsm/kg (285-295) 08/13/23 05:40 Calcium 8.7 mg/dL (8.5-10.5) 08/13/23 05:40 Urine Color Yellow (Yellow) 08/12/23 11:30 Urine Appearance Clear (CLEAR) 08/12/23 11:30 Urine pH 5 (5-7) 08/12/23 11:30 Ur Specific [place] 1.015 (1.005-1.030) 08/12/23 11:30 Urine Protein Neg (Negative) 08/12/23 11:30 Urine Glucose (UA) Norm (Normal) 08/12/23 11:30 Urine Ketones Negative (Negative) 08/12/23 11:30 Urine Blood Neg (Negative) 08/12/23 11:30 Urine Nitrate Negative (Negative) 08/12/23 11:30 Urine Bilirubin Neg (Negative) 08/12/23 11:30 Urine Urobilinogen Neg mg/dL (Negative) 08/12/23 11:30 Ur Leukocyte Esterase Negative (Negative) 08/12/23 11:30 Blood Type A Positive 08/12/23 10:30 Rho(D) Type Rh positive 08/12/23 10:30 Antibody Screen Negative 08/12/23 10:30 Vitals Last Vital Signs Temp 97.3 F L 08/13/23 11:02 Pulse 98 08/13/23 11:02 Resp 17 08/13/23 11:27 BP 176/112 08/13/23 11:02 Pulse Ox 100 08/13/23 11:27 O2 Del Method Room Air 08/13/23 11:02 O2 Flow Rate 6 08/12/23 15:13 Discharge Plan Discharge Patient Disposition: Home Condition: Stable Prescriptions: New methocarbamol 500 mg tablet 500 mg PO Q8H PRN (Reason: muscle spasms/cramping) 14 Days Qty: 42 0RF Continued levothyroxine [Synthroid] 50 mcg tablet 50 mcg PO DAILY losartan 50 mg tablet 50 mg PO DAILY Eliquis 5 mg tablet 5 mg PO BID Otezla 30 mg tablet 30 mg PO BID tolterodine 4 mg capsule,extended release 24hr 4 mg PO DAILY omeprazole 40 mg capsule,delayed release(DR/EC) 40 mg PO DAILY budesonide 3 mg capsule,delayed,extend.release 9 mg PO DAILY No Action (DME) Security Representative Brace See Rx Instructions .Route .MEDSUPPLY Qty: 1 0RF Rx Instructions: As directed oxycodone 5 mg tablet 5 mg PO Q6H PRN (Reason: pain postop) 7 Days Qty: 28 0RF Discharge Orders: Discharge Order (Routine); Ordered 08/13/23 Ordered By: Duran Mckeon Other Ambulatory Orders: Physical Therapy Eval and Treat Outpatient (Order) Timeframe: 3 Days Facility: [facility] - Location: Physical Therapy [facility] Ordered By: Duran Mckeon Referrals: Duran Mckeon DO [Physician] - 09/03/23 10:15 am Discharge Diet: Advance as tolerated Discharge Activity: Limit activity as instructed Patient Instructions: Methocarbamol (By mouth) (Robaxin, Robaxin-750), Oxy codone, Rapid Release (By mouth), Ondansetron (By mouth), Total Knee Replacement (GEN) Activity Restrictions/Additional Instructions: Keep incisions clean dry and intact, leave Silverlon bandage dressings on in place for 7 days after that may rinse incisions with warm soapy water pat dry and redress with a dry dressing. Patient may weight-bear as tolerate to the operative extremity Utilize crutches as needed Encourage knee range of motion Ice and elevate as needed for pain and swelling Take pain medication as prescribed Take antinausea medication as needed Continue taking Eliquis as previously prescribed May supplement for pain with ibuprofen [id number] as needed No baths or soaks Follow-up in the orthopedic office in 2 weeks Contact the office for any questions or concerns Discharge Attestations Time Spent in Discharge Care*: less than 30 min Quality Metrics Clinical Quality Measures [ No reported AMI, CVA or VTE this stay] Coding Level of Care Code Acute Code for Chg Fwd Diagnoses History of arthroplasty of right knee Z96.651 History of hypertension Z86.79 Hypothyroid E03.9 Time Spent (min) 25
--- NOTE | 2023-08-13 12:43 | P.PN_ITS ---
Subjective 2 Subjective: Patient was seen this morning, she tells me that she is ready to go home, denies any chest pain, no palpitations, no fevers, no chills, hemoglobin 8.9, will recheck this afternoon, will await orthopedic service to see patient before deciding discharge, no nausea, no vomiting, she is passing gas, Carlin catheter removed, Vitals/I&O/Wt Last Vital Signs Temp 97.3 F L 08/13/23 11:02 Pulse 98 08/13/23 11:02 Resp 17 08/13/23 11:27 BP 176/112 08/13/23 11:02 Pulse Ox 100 08/13/23 11:27 O2 Del Method Room Air 08/13/23 11:02 O2 Flow Rate 6 08/12/23 15:13 08/12/23 08/13/23 08/13/23 22:59 06:59 14:59 Intake Total 6 / 2005 1148.333 / 3154.333 Output Total 320 / 320 1650 / 1970 Balance 786 / 1686 -501.667 / 1184.333 Weight last 48 hrs Weight 105.324 kg Weight 96.162 kg Weight 96.162 kg Physical Exam 2 Const: COMMON NORMALS: no acute distress and patient oriented x3 Resp: COMMON NORMALS: normal respiratory effort, No retractions, No use of accessory muscles and clear to auscultation bilaterally AUSCULTATION: clear to auscultation bilaterally Cardio: COMMON NORMALS: regular rate, regular rhythm, S1 normal heart sound present and S2 normal heart sound present RATE: regular rate RHYTHM: r egular rhythm HEART SOUNDS: S1 normal heart sound present and S2 normal heart sound present GI: COMMON NORMALS: Normal to inspection, nondistended, normoactive bowel sounds present and non-tender Extremity: COMMON NORMALS: no pedal edema Neuro: COMMON NORMALS: patient oriented x3 Psych: COMMON NORMALS: mental status grossly normal Urinary Catheter Management: Carlin: Cath Placed During This Visit: yes, but has since been removed by the nurse Reason for Continuing Indwelling Catheter: Acute Urinary Retention or Obstruction Urinary Catheter Date of Insertion: 08/12/23 Urinary Catheter Time of Insertion: 11:40 Date Urinary Catheter Removed: 08/13/23 Time Urinary Catheter Discontinued: 03:07 Data 08/13/23 05:40 08/13/23 05:40 A&P Assessment and plan (1) History of arthroplasty of right knee: (2) History of hypertension: (3) Hypothyroid: Plan Status post right knee arthroplasty Pain control as per orthopedic team, ? Anticoagulation as per orthopedic team, PT OT Factor V Leiden, orthopedic service wants to resume Eliquis tomorrow morning Hypothyroidism, resume levothyroxine Hypertension resume Cozaar Attestations 2 Medical Necessity Statement*: Patient will be discharged today Diagnoses History of arthroplasty of right knee Z96.651 History of hypertension Z86.79 Hypothyroid E03.9
[2023-08-13 13:51] LABS: Basophils % 0.3 %; Eosinophils # 0.1 10^3/uL (0.0-0.8); Eosinophils % 0.5 %; Lymphocytes # 1.6 10^3/uL (0.8-4.8); Lymphocytes % 15.9 %; Mean Corpuscular HGB Conc 30.7 g/dL (30-55); Mean Corpuscular Hemoglobin 24.9 pg (27-33); Mean Corpuscular Volume 81.1 fl (85-98); Mean Platelet Volume 10.1 fL (7.4-10.4); Monocytes # 0.8 10^3/uL (0.2-0.9); Monocytes % 7.7 %; Neutrophils # 7.42 10^3/uL (1.8-7.7); Neutrophils % 75.4 %; Nucleated Red Blood Cells % 0 %; Platelet Count 229 10^3/cmm (157-399); Red Cell Distribution Width 17.5 % (12.1-15.1); White Blood Count 9.85 10^3/uL (3.29-11.43)
== END 2023-08-13 14:23 | disposition home or self-care (01) ==
LOC: MEDSURG 15:32
PROVIDERS: Family Medicine; Physician Assistant; Admitting Provider Student in an Organized Health Care Education/Training Program; PCP Family Medicine; Visit Provider Student in an Organized Health Care Education/Training Program
PROC: 8E0Y0CZ Robotic Assisted Procedure of Lower Extremity, Open Approach (ICD-10-PCS; CPT 27447; principal; 2023-08-12 10:50)
DX: M17.11 Unilateral primary osteoarthritis, right knee (principal); I10 Essential (primary) hypertension; E03.9 Hypothyroidism, unspecified; D68.51 Activated protein C resistance; Z79.01 Long term (current) use of anticoagulants
CPT/HCPCS: 20985; 27447; 36415; 51702; 73562; 80048; 81003; 85025; 86850; 86900; 97110; 97116; 97161; 97165; C1776; G0378; J0131; J0171; J1100; J1170; J1885; J2405; J2795; J3010; J3370; J3490; J7030; J7050; J7120

== ENCOUNTER → 2023-09-03 09:52 | Outpatient (BNVA) | payer BC, MEDICAID, SELFPAY | PROVIDERS: Visit Provider Student in an Organized Health Care Education/Training Program | DX: Z96.651 Presence of right artificial knee joint (principal) | CPT/HCPCS: 73560; 73565 ==

== ENCOUNTER 2023-09-04 06:00 | Outpatient (RCR) | payer BC, MEDICAID, SELFPAY | END 2023-09-17 23:59 | disposition home or self-care (01) | LOC: MPT 06:00 | PROVIDERS: Visit Provider Student in an Organized Health Care Education/Training Program | DX: M17.11 Unilateral primary osteoarthritis, right knee (principal) | CPT/HCPCS: 97110; 97162 ==

== ENCOUNTER → 2023-09-17 14:57 | Outpatient (BNVA) | payer BC, MEDICAID, SELFPAY | PROVIDERS: PCP Family Medicine; Visit Provider Orthopaedic Surgery | DX: M54.50 Low back pain, unspecified (principal) | CPT/HCPCS: 72110 ==

== ENCOUNTER 2023-09-18 06:00 | Outpatient (RCR) | payer BC, MEDICAID, SELFPAY | END 2023-10-18 23:59 | disposition home or self-care (01) | LOC: MPT 06:00 | PROVIDERS: PCP Family Medicine; Visit Provider Student in an Organized Health Care Education/Training Program | DX: M17.11 Unilateral primary osteoarthritis, right knee (principal) | CPT/HCPCS: 97110; 97140; G0283 ==

== ENCOUNTER → 2023-10-02 12:41 | Outpatient (BNVA) | payer BC, MEDICAID, SELFPAY | PROVIDERS: PCP Family Medicine; Visit Provider Emergency Medicine | DX: R30.0 Dysuria (principal) | CPT/HCPCS: 81000 ==

== ENCOUNTER → 2023-10-15 15:48 | Outpatient (BNVA) | payer BC, MEDICAID, SELFPAY | PROVIDERS: PCP Family Medicine; Visit Provider Student in an Organized Health Care Education/Training Program | DX: Z96.651 Presence of right artificial knee joint (principal) | CPT/HCPCS: 73560; 73565 ==

== ENCOUNTER 2023-10-16 06:58 | Outpatient (CLI) | payer BC, MEDICAID, SELFPAY ==
--- NOTE | 2023-10-16 07:15 | MR_ITS ---
WS: [id number] MRI LUMBAR SPINE NONCONTRAST HISTORY: back pain COMPARISON: Radiograph 09/17/2023 TECHNIQUE: Sagittal and axial multisequence imaging is submitted. Slight increase in the lumbar lordosis. 2 mm anterolisthesis of L4. Chronic changes in the endplates at L5-S1. No fractures. Mild desiccation of the disc spaces. Conus terminates normally at L1-2 disc level. L1-L2: Normal. L2-L3: Mild facet disease. Small amount of fluid in the facet joints. L3-L4: Mild disc bulging with moderate ligamentum flavum and facet arthritis. LEFT ligamentum flavum is slightly greater than the RIGHT. Mild encroachment upon the LEFT subarticular recess. Disc bulges asymmetric to the LEFT. No nerve root contact. L4-L5: Mild annular disc bulging with a small LEFT foraminal disc protrusion contacting but not displ acing the LEFT exiting L4 nerve root. Moderate ligamentum flavum and facet arthritis. There is mild e ncroachment upon the subarticular recesses. L5-S1: Mild osteophytic ridging and annular disc bulging with facet joint arthritis. Very minimal dis c contact on the S1 nerve roots. Mild RIGHT with moderate LEFT foraminal stenosis. LEFT foraminal wu nosis due to combination of osteophytes, disc and facet disease. MR/MR lumbar spine wo con* [id number] IMPRESSION: 1. L4 anterolisthesis by 2 mm. Anterolisthesis was more pronounced on the upri ght radiograph of the lumbar spine performed on 09/17/2023. 2. L5-S1: Moderate LEFT foraminal stenosis due to osteophytes, disc and facet disease. Otherwise mild disc encroachment upon the S1 nerve roots. 3. L4-5: Small LEFT foraminal disc protrusion contacting but not displacing th e LEFT exiting L4 nerve root. Moderate ligamentum flavum and facet arthritis. 4. L3-4: Mild asymmetric disc bulging mild encroachment upon the subarticular recesses.
== END 2023-10-16 06:59 | disposition home or self-care (01) ==
LOC: RAD 06:58
PROVIDERS: PCP Family Medicine; Visit Provider Orthopaedic Surgery
DX: M51.26 Other intervertebral disc displacement, lumbar region (principal); M48.07 Spinal stenosis, lumbosacral region
CPT/HCPCS: 72148; 81000; 87086

== ENCOUNTER 2023-10-19 06:00 | Outpatient (RCR) | payer BC, MEDICAID, SELFPAY | END 2023-11-17 23:59 | disposition home or self-care (01) | LOC: MPT 06:00 | PROVIDERS: PCP Family Medicine; Visit Provider Student in an Organized Health Care Education/Training Program | DX: M17.11 Unilateral primary osteoarthritis, right knee (principal) | CPT/HCPCS: 97110; 97112; 97140 ==

== ENCOUNTER → 2023-11-07 09:48 | Outpatient (BNVA) | payer BC, MEDICAID, SELFPAY | PROVIDERS: PCP Family Medicine; Visit Provider Student in an Organized Health Care Education/Training Program | DX: Z96.651 Presence of right artificial knee joint (principal); G57.31 Lesion of lateral popliteal nerve, right lower limb | CPT/HCPCS: 73560; 73565 ==

== ENCOUNTER 2023-12-04 09:51 | Day surgery (SDC) | payer BC, MEDICAID, SELFPAY ==
[2023-12-04] VITALS (11 sets, daily range): BP systolic 128–157; BP diastolic 82–118; PULSE 77–101; RESP 12–23; TEMP 36.2–36.6; O2SAT 95–100; BMI 32.2
--- NOTE | 2023-12-04 10:29 | W.PM.OPSUD ---
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
[2023-12-04] MEDS: scopolamine 1.5 Patch 1 PATCH TRANSDERMA (10:34)
[2023-12-04] MEDS: sodium chloride 0.9% 1,000 ML 30 ML IV (10:35)
[2023-12-04] MEDS: acetaminophen 1,000 MG/100 ML PIGGYBACK 400 MG IV (10:35)
[2023-12-04] MEDS: ketorolac 30 mg/mL INJ IVP (10:35)
--- NOTE | 2023-12-04 10:53 | P.ANESASSM_ITS ---
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 Operation Date: 12/04/23 11:15 Proposed Procedures p Peroneal Nerve Decompression(Right) - Duran Mckeon, Familial anesthetic complications: None Was Beta Pernell taken within 24 hours: N/A Was Clonidine taken within 24 hours: N/A Last intake: Intake Last Liquid Date 12/03/23 Last Liquid Time 21:45 Last Solid Date 12/03/23 Last Solid Time 15:00 Social No alcohol and No tobacco Exam alert, oriented x 3, clear to auscultation bilaterally and regular rate & rhythm Airway Mallampati: Class II Dentition: chipped CV/HEM Hypertension factor V leiden Hepatic Hepatitis GI Gastroesophageal Reflux Disease Metabolic Thyroid Disease Anesthetic Plan ASA status: 3 Anesthesia: Choice Risk of > 500 ml blood loss (7ml/kg in children): No Medications/Allergies Home Medications Medication Instructions Recorded Confirmed Last Taken Type apixaban 5 mg tablet (Eliquis) 5 mg PO BID 10/24/22 12/03/23 12/01/23 22:00 History levothyroxine 50 mcg tablet 50 mcg PO DAILY 10/24/22 12/03/23 12/03/23 08:00 History (Synthroid) Wind Site Manager Brace #1 ea 12/03/22 11/26/23 Unknown Rx budesonide 3 mg 9 mg PO DAILY 08/13/23 12/03/23 12/03/23 08:00 History capsule,delayed,extended release omeprazole 40 mg capsule,delayed 40 mg PO DAILY 08/13/23 12/03/23 12/03/23 10:00 History release gabapentin 100 mg capsule 300 mg (3 x 100 mg) PO TID #90 caps 10/29/23 12/03/23 12/01/23 22:00 Rx AFO Brace #1 ea 11/07/23 11/26/23 Unknown Rx cyclobenzaprine 10 mg tablet 10 mg PO TID PRN muscle spasm #90 11/07/23 12/03/23 Unknown Rx tabs losartan 50 mg tablet 100 mg PO DAILY 11/07/23 12/03/23 12/02/23 22:00 History hydrochlorothiazide 12.5 mg capsule 12.5 mg PO DAILY 11/26/23 12/03/23 12/03/23 15:00 History azathioprine 50 mg tablet 50 mg PO DAILY 12/03/23 12/03/23 12/03/23 15:00 History Allergies Allergy/AdvReac Type Severity Reaction Status Date / Time Penicillins Allergy ALGY-Anaphy Verified 12/04/23 10:05 laxis Current Medications Generic Name Dose Route Start Last Admin Trade Name Freq PRN Reason Stop Dose Admin Sodium Chloride 1,000 mls @ 30 mls/hr 12/04/23 10:00 12/04/23 10:35 Sodium Chloride 0.9% IV 12/05/23 09:59 30 mls/hr .Q24H KEAGAN Administration PFSH Anesthesia Medical History History of hypertension CRVO (central retinal vein occlusion) Surgical History H/O: hysterectomy Social History Smoking and tobacco/nicotine status: former use of tobacco/nicotine Alcohol intake: never Substance/Drug Use: never Data Anesthesia Cardiac Studies: No Data to Display
[2023-12-04] MEDS: clindamycin 900 MG/50 ML PREMIX 100 MG IV (11:05)
[2023-12-04] MEDS: ROPivacaine 0.5% SDV 30 mL 50 MG INJECTION (12:13)
[2023-12-04] MEDS: lidocaine 2% INJ 20 mL 10 ML INJECTION (12:13)
--- NOTE | 2023-12-04 12:34 | W.PM.BPON ---
Date of Procedure: [12/04/2023] Surgeon: Duran Mckeon DO Community Health Educator(s): None Procedure(s) performed: Right knee peroneal nerve decompression Findings of the procedure(s): Patient was found to have entrapment of the common peroneal nerve at the fibular head with significant nerve irritation. Underwent decompression without issues or complications patient tolerated procedure without complication taken PACU stable condition. Estimated blood loss: 5 mL Specimen(s) removed: None Post-operative diagnosis: Right knee peroneal nerve entrapment
--- NOTE | 2023-12-04 12:35 | P.OP_ITS ---
Operative Report Date of procedure: December 04, 2023 Pre-op diagnosis: Right peroneal nerve entrapment at the fibular head Post-op diagnosis: Same Procedure done: Right knee peroneal nerve decompression Surgeon: Duran Mckeon DO Anesthesia: General Estimated blood loss: 5 mL 32 minutes IV fluids: 650mL Complications: None Findings: See operative report narrative Condition: stable Disposition: same day Brief History: Patient is a pleasant 53-year-old female who for send to my office with right knee arthritis underwent a right total knee arthroplasty after failed conservative treatment and had done well postoperatively from the standpoint of her right knee. She did appear to have significant exacerbation and ended up developing right knee common peroneal nerve entrapment at the fibular head. Originally this was worked up by spine partner for possible sciatic which there is a component of this but she regained all range of motion postoperatively with the knee and was doing well with this but had significant the positive exam findings for common peroneal nerve entrapment. As result she subsequently had a bilateral lower extremity nerve conduction study which findings was consistent with this we talked about her treatment options in detail as far as continued nonoperative and operative invention she does have continued electrical shocking sensation going down from the fibular head and has a positive Tinel's in this area given her exam findings she is failed conservative treatment she through shared decision making we elected proceed with surgical intervention of her right knee common peroneal nerve decompression. Patient understands and Zetts procedure risk benefits complication alternatives surgery through shared decision make elects proceed with surgical invention. All questions answered at this time. Procedure: Patient was seen evaluate in the preoperative holding area. Consent was reviewed and signed with patient. Correct extremities and subsequently marked. Patient was then seen evaluated by anesthesia was cleared for surgery she was taken back to the operative suite transported on the OR table and placed in a beanbag lateral decubitus positioning. She underwent anesthesia per the anesthesia department once appropriately anesthetized all bony prominence well- padded patient appropriate secured to the bed. We then subsequently secured patient in the lateral decubitus positioning. We placed a nonsterile tourniquet to the right thigh. She then subsequently was prepped and draped in orthopedic fashion. Timeout final timeout performed. Patient received appropriate preoperative antibiotics. Esmarch tourniquet was used exsanguinate the right lower extremity tourniquet was insufflated to 250 mmHg. Identified and marked out the landmarks of the fibular head and the fibular neck and the course of the common peroneal nerve around the fibular neck I subsequently made a small curvilinear incision following the course of the common peroneal nerve sharp scalpel incision was made through skin only and a switch to Littler dissection scissors. I initially identified the nerve proximally as this was wrapping around into the fibular neck. Approximately the nerve showed signs of compression as this was more swollen and engorged and then had significant tapering and scissoring as it pierced through the fascia around the neck into the fascia of the anterior lateral aspects of the knee just past fibular head. At this point in time I dissected out the common peroneal nerve proximally and then in slow sequential fashion with Littler dissection scissors dissected out the common peroneal nerve distally releasing all fascia and bands trapping this nerve this did have significant compressive and indentation of the nerve at this site as well as swelling of the nerve approximately once again confirming common peroneal nerve irritation at this site. I released this all the way as it went deep within the muscle belly past the fascia verifying no further bands or fascia was tethering this superficially or deep to the nerve. Once this was done to its entirety I then let down the tourniquet hemostasis was satisfactory and maintained with bipolar electrocautery I then thoroughly irrigated the wound bed and then subsequently closed this in sequential fashion with 3-0 Vicryl suture for subcutaneous for the skin and nylon for the skin. Local was placed within the wound bed subcutaneously. Patient was then placed in a bulky soft dressing of Xeroform 4 x 4's ABD Harsha wrap and then placed into a cam boot. She was awakened from anesthesia taken PACU in stable condition. Disposition: Patient taken PACU in stable condition recovering well patient will receive appropriate discharge instructions as well as pain medication postoperatively. Will follow-up with the patient in 2 weeks postoperatively for evaluation. Patient understands agrees current plan. All questions answered.
[2023-12-04] MEDS: ondansetron 2 mg/ML SDV 2 mL 4 MG IVP ×3 (12:40→14:04)
[2023-12-04] MEDS: HYDROcodone-acetaminophen 5-325 mg Tablet 1 TAB PO (14:04)
--- NOTE | 2023-12-04 14:15 | ANE.PACU2 ---
Inpatient post-anesthesia follow up: Airway intact: Yes Vital signs: Temperature 97.8 F Pulse Rate 77 Respiratory Rate 17 Blood Pressure 128/89 Pulse Oximetry 97 Oxygen Delivery Me thod Room Air Oxygen Flow Rate 8 Fraction of Inspir ed Oxygen Hydration adequate: Yes Nausea and vomiting: No Pain level: 1 Mental status: Baseline
== END 2023-12-04 14:15 | disposition home or self-care (01) ==
PROVIDERS: PCP Family Medicine; Visit Provider Student in an Organized Health Care Education/Training Program
PROC: (CPT 64708; principal; 2023-12-04 11:15)
DX: G57.31 Lesion of lateral popliteal nerve, right lower limb (principal); I10 Essential (primary) hypertension; K21.9 Gastro-esophageal reflux disease without esophagitis; Z87.891 Personal history of nicotine dependence
CPT/HCPCS: 64708; J0131; J1100; J1885; J2405; J2704; J2710; J2795; J3010; J3490; J7030

== ENCOUNTER 2023-12-16 11:38 | Outpatient (CLI) | payer BC, MEDICAID, SELFPAY ==
[2023-12-16 11:43] VITALS: BMI 32.8
--- NOTE | 2023-12-16 11:45 | ECG_ITS ---
[facility] Test Date: 2023-12-16 Pat Name: Kesha Sanz Department: Room: Gender: Female Fsr: : 1970 Requested By: Sanjiv Rocha Order Number: [id number] Reading : Interpretive Statements Lung unchanged pre/post procedure; Intraprocedure shortess of breath; Symptoms resoled by discharge [email or web address]
[2023-12-16 12:21] VITALS: BP 114/86; PULSE 107
== END 2023-12-16 11:39 | disposition home or self-care (01) ==
PROVIDERS: PCP Family Medicine; Visit Provider Family Medicine
DX: I10 Essential (primary) hypertension (principal); R07.89 Other chest pain; R00.0 Tachycardia, unspecified; R06.02 Shortness of breath
CPT/HCPCS: 93017

== ENCOUNTER → 2024-01-14 15:05 | Outpatient (BNVA) | payer BC, MEDICAID, SELFPAY | PROVIDERS: PCP Family Medicine; Visit Provider Student in an Organized Health Care Education/Training Program | DX: Z96.651 Presence of right artificial knee joint (principal); M17.12 Unilateral primary osteoarthritis, left knee | CPT/HCPCS: 73560; 73565 ==

== ENCOUNTER 2024-02-13 15:48 | Outpatient (CLI) | payer BC, MEDICAID, SELFPAY ==
--- NOTE | 2024-02-13 15:53 | MR_ITS ---
WS: [id number] MRI CERVICAL SPINE NONCONTRAST HISTORY: RADICULOPATHY, CERVICAL REGION COMPARISON: None available. Technique: Multiplanar, multisequence noncontrast imaging of the cervical spine. Mild straightening of the normal cervical lordosis. Disc spaces are mildly narrowed throughout. Mild osteophytosis. Signal within the cervical cord is normal. Visualized posterior fossa is unremarkable. Craniocervical junction, C1 and C2 relationship, odontoid process and soft tissues are normal. C2-C3: Normal. C3-C4: Normal. C4-C5: Very minimal osteophytic ridging. No stenosis. C5-C6: Small central disc protrusion. Small bilateral foraminal osteophytes. There is very minimal en croachment on the central canal and RIGHT foramen. C6-C7: Mild central disc protrusion. Mild annular disc bulging and osteophytic ridging. Small bilater al foraminal disc osteophyte complexes. Very minimal central canal narrowing. C7-T1: Mild disc bulging. Paraspinal soft tissue are normal. MR/MR cervical spin wo con* [id number] IMPRESSION: 1. No high-grade central or foraminal stenosis. 2. Mild disc space narrowing in the cervical spine, most significant at C5-6 a nd C6-7. 3. Very small central disc protrusions at C5-6 and C6-7 with minimal stenosis. 4. Mild RIGHT foraminal narrowing at C5-6.
== END 2024-02-13 15:49 | disposition home or self-care (01) ==
LOC: RAD 15:49
PROVIDERS: PCP Family Medicine; Visit Provider General Practice
DX: M54.12 Radiculopathy, cervical region (principal)
CPT/HCPCS: 72141

== ENCOUNTER 2024-04-03 14:09 | Outpatient (CLI) | payer BC, MEDICAID, SELFPAY ==
--- NOTE | 2024-04-03 14:30 | MR_ITS ---
WS: [id number] MRI LEFT KNEE NONCONTRAST TECHNIQUE: Axial PD, coronal PD fat sat, coronal PD, sagittal PD, and sagittal PD fat-sat images obta ined. CLINICAL INFORMATION: djd knee COMPARISON: None. FINDINGS: Distal quadriceps and patella tendons are intact. Normal ACL and PCL. Chronic thinning of the medial and lateral meniscus. No acute appearing meniscal tears. Grade II chondromalacia patella. Medial and lateral patellar retinaculum appear intact. Normal popliteal fossa. Medial and lateral collateral ligaments appear intact. Mild chondromalacia me dial and lateral joint compartments. Normal popliteus. Small suprapatellar effusion. Normal bone phil ow signal in the femoral condyles and tibial plateau. Normal fibula head. MR/MR knee LT wo con* [id number] IMPRESSION: 1. Normal ACL and PCL. 2. Normal medial and lateral meniscus. No acute appearing meniscal tears. Rn Shift Mgr marbella thinning. 3. Grade II chondromalacia patella. 4. Small suprapatellar effusion. 5. No other acute findings. Outbridge grading: grade II: blister-like swelling/fraying of articular cartila ge extending to surface
== END 2024-04-03 14:10 | disposition home or self-care (01) ==
LOC: RAD 14:10
PROVIDERS: PCP Family Medicine; Visit Provider Student in an Organized Health Care Education/Training Program
DX: M17.12 Unilateral primary osteoarthritis, left knee (principal); M22.42 Chondromalacia patellae, left knee
CPT/HCPCS: 73721

== ENCOUNTER → 2024-04-14 14:35 | Outpatient (BNVA) | payer BC, MEDICAID, SELFPAY | PROVIDERS: PCP Family Medicine; Visit Provider Student in an Organized Health Care Education/Training Program | DX: M25.551 Pain in right hip | CPT/HCPCS: 73502 ==

== ENCOUNTER → 2024-04-30 16:35 | Outpatient (BNVA) | payer BC, MEDICAID, SELFPAY | PROVIDERS: PCP Family Medicine; Visit Provider Orthopaedic Surgery | DX: M54.9 Dorsalgia, unspecified (principal) | CPT/HCPCS: 80053 ==

== ENCOUNTER 2024-05-11 10:39 | Outpatient (CLI) | payer BC, MEDICAID, SELFPAY ==
[2024-05-11 11:34] LABS: Bacteria Urine None Seen /hpf; Hyaline Casts Urine 0-4 /lpf; RBC Urine 0-2 /hpf (0-2); Squamous Epithelial Cell Urine 0-5 /hpf (0-5); WBC Urine 0-5 /hpf (0-5)
[2024-05-11 11:38] LABS: Add Urine Microscopic? YES; Bilirubin Urine Negative (Negative); Blood Urine Negative (Negative); Glucose Urine UA Negative (Normal); Ketones Urine Negative (Negative); Leukocyte Esterase Urine Negative (Negative); Nitrate Urine Negative (Negative); Protein Urine Negative (Negative); Specific Gravity, Urine 1.016 (1.005-1.030); Urine Appearance Clear (CLEAR); Urine Color Yellow (Yellow); Urobilinogen Urine 0.2 mg/dL (Negative)
== END 2024-05-11 10:40 | disposition home or self-care (01) ==
PROVIDERS: PCP Family Medicine; Visit Provider Orthopaedic Surgery
DX: M54.9 Dorsalgia, unspecified (principal)
CPT/HCPCS: 81001

== ENCOUNTER → 2024-05-19 13:10 | Outpatient (BNVA) | payer BC, MEDICAID, SELFPAY | PROVIDERS: PCP Family Medicine; Visit Provider Nurse Practitioner | DX: R50.9 Fever, unspecified (principal) | CPT/HCPCS: 87400; 87426 ==